=== PATIENT | female | born 1995 | race African-American/Black ===

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

== ENCOUNTER 2017-02-21 15:12 | Emergency (ER) | payer OTHER ==
[~2017-02-21] VITALS: Ht 167.6 cm; Wt 90.7 kg
[~2017-02-21 15:12] MED LIST changes: +PHENAZOPYRIDIN100 MG ORAL
[2017-02-21 16:20] VITALS: BP 107/70
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
[2017-02-21] MEDS ORDERED: CYCLOBENZAPRINE10 MG ORAL (18:06)
[2017-02-21] MEDS ORDERED: IBUPROFEN600 MG ORAL (18:06)
[2017-02-21 18:23] VITALS: BP 110/71
--- NOTE | 2017-02-22 08:15 | Diagnostic Imaging Report ---
Indication: Pain Technique: Continuous helical CT scanning of the head was performed utilizing automated exposure control without intravenous contrast material. Axial and coronal reconstructions were obtained. Comparison: None CT dose: Total DLP 1407.76 mGycm; CTDI vol 70.38 mGy Findings: There is no acute intracranial hemorrhage, mass effect or cortical edema. Size and configuration of the ventricular system within normal limits. The posterior fossa and fourth ventricle are unremarkable. Sellar and suprasellar regions are grossly unremarkable. Visualized mastoid air cells and paranasal sinuses are unremarkable. No focal lesions of the bony calvarium or soft tissues of the scalp are seen. Impression: No evidence of acute intracranial hemorrhage, mass effect or cortical edema. MRI may be obtained for more sensitive evaluation as clinically indicated. This corresponds with the statrad preliminary report. The CT scanner at [facility] is accredited by the [employer] and the scans are performed using protocols designed to limit radiation exposure to as low as reasonably achievable to attain images of sufficient resolution adequate for diagnostic evaluation.
--- NOTE | 2017-02-22 08:25 | Diagnostic Imaging Report ---
Indication: Pain Technique: CT maxillofacial was performed utilizing automated exposure control without intravenous contrast material. Axial and coronal images were generated. CT dose: Total DLP 577.43 mGycm; CTDI vol 28.19 mGy Comparison: None Findings: No acute fracture is identified. The mandible, midface and nasal bones are intact. The orbits are unremarkable. Mastoid air cells are clear. There is mucosal thickening with retention cyst versus polyp in the left maxillary sinus. Minimal mucosal thickening of some left-sided ethmoid air cells. There is opacification of the right lacrimal canaliculus. The nasal septum is midline. Visualized intracranial compartment is unremarkable. Small bilateral nonspecific cervical lymph nodes noted, possibly reactive in etiology. Impression: No acute fracture. This corresponds with the statrad preliminary report. The CT scanner at [facility] is accredited by the [employer] and the scans are performed using protocols designed to limit radiation exposure to as low as reasonably achievable to attain images of sufficient resolution adequate for diagnostic evaluation.
--- NOTE | 2017-02-22 09:45 | Diagnostic Imaging Report ---
Indication: Pain Technique: XRAY Forearm 2v R Comparison: None Findings: There is no acute fracture or dislocation. Partially imaged wrist and elbow joint articulations are preserved. There may be slight reticulation/edema along the dorsal aspect of the midforearm. No radiopaque foreign body identified. Impression: No acute fracture or dislocation.
== END 2017-02-21 18:25 | disposition home or self-care (01) ==
LOC: EMR 16:00
DX: S50.11XA Contusion of right forearm, initial encounter (principal); V47.0XXA Car driver injured in collision with fixed or stationary object in nontraffic accident, initial encounter; Y92.89 Other specified places as the place of occurrence of the external cause; J34.89 Other specified disorders of nose and nasal sinuses; R51 Headache; Y04.2XXA Assault by strike against or bumped into by another person, initial encounter
CPT/HCPCS: 70450; 70486; 99284

== ENCOUNTER 2017-06-14 15:18 | Emergency (ER) | payer SELFPAY ==
[~2017-06-14] VITALS: Ht 167.6 cm; Wt 98.9 kg
[~2017-06-14 15:18] MED LIST changes: +CYCLOBENZAPRINE10 MG ORAL
[2017-06-14 15:44] VITALS: BP 126/79
--- NOTE | 2017-06-14 16:10 | Emergency Room Report ---
History of Present Illness General Chief Complaint: Upper Respiratory Illness Source: Patient (Davey Hay) Present Illness HPI 22-year-old female patient presents to ER complaining of cough with sputum for the past week and intermittent spotting for the past few days. Patient reports cough has been intermittently with green sputum, denies hemoptysis. Denies chest pain. Denies control medication. Patient also complains of spotting for the past few days. Denies pain with urination, dysuria, hematuria , vaginal discharge, foul swelling odor, rash. Denies history of STI. Reports last period was a month ago normal. Reports menstrual period should have begun currently but has not. Reports last sexual encounter few days ago, use protection. Denies fever, chest pain, shortness of breath, abdominal pain. reports taking NyQuil for relief of symptoms. denies lightheadedness, dizziness , fainting. (Davey Hay) Allergies: Coded Allergies: No Known Allergies (Unverified , 07/02/13) Patient History Past Medical History: see triage record Last Menstrual Period: May 08 Now: No Reviewed Nursing Documentation: PMH: Agreed; PSxH: Agreed (Davey Hay) Nursing Documentation-PMH Past Medical History: No Stated History (Davey Hay) Review of Systems All Other Systems: negative except mentioned in HPI (Davey Hay) Physical Exam Vital Signs Date Time Temp Pulse Resp B/P (MAP) Pulse Ox O2 Delivery O2 Flow Rate FiO2 18 15:30 98.1 95 18 127/83 98 Room Air 98.1 Sp02 EP Interpretation: reviewed, normal General Appearance: well appearing, no apparent distress, alert, GCS 15, non- toxic Head: normocephalic, atraumatic Eyes: bilateral eye normal inspection, bilateral eye PERRL ENT: hearing grossly normal, normal pharynx, no angioedema, normal voice, TMs + canals normal, uvula midline, moist mucus membranes, tonsillar swelling, other - no exudates, mild erythema, post nasal drip Neck: full range of motion Respiratory: lungs clear, normal breath sounds, no rhonchi, no respiratory distress, no accessory muscle use, no wheezing, speaking full sentences Cardiovascular #1: regular rate, rhythm, no edema Gastrointestinal: non tender, soft, no mass, non-distended, no guarding, no rebound, other Genitourinary: no CVA tenderness Musculoskeletal: back normal, digits/nails normal, gait/station normal, normal range of motion, non-tender Neurologic: alert, oriented x3, responsive, motor strength/tone normal, sensory intact Psychiatric: mood/affect normal Skin: no rash (Davey Hay) Medical Decision Making PA Attestation Dr. Grant is my supervising Physician whom patient management has been discussed with. (Davey Hay) Diagnostic Impression: Primary Impression: Cough Additional Impressions: Sore throat Spotting ER Course Pt presents to ED c/o sore throat, cough, and spotting. DDX considered but are not limited to pharyngitis, laryngitis, URI, peritonsillar abscess, tonsillitis, bronchitis, UTI, metrorrhagia, . Low suspicion for peritonsillar abscess, no neck stiffness, no hot potato voice , no stridor. low suspicion for pneumonia, does not need a chest x-ray at this time. Does not require imaging at this time. VITAL SIGNS are WNL, patient is afebrile. Ordered viscous lidocaine, medication, UA and urine . ER COURSE: UA negative for nitrites few epithelial cells, no UTI symptoms, low suspicion for UTI, does not require antibiotics at this time. Hematuria present, likely related to spotting symptoms. Urine negative. Results discussed with patient. no signs of anemia, denies dizziness or fainting. Does not require labs at this time. Instructed patient follow with primary care provider for further evaluation of irregular menstruation. Form patient she needs close outpatient follow-up and possible referral to [facility]PUT[facility] ANA[facility] for further treatment and management symptoms. Discuss control at that time. drink plenty of fluids, stay hydrated. If concerned for STI follow-up with STI clinic, patient reports no concern for STI at this time does not require treatment. Lungs clear to auscultation, no wheezes rhonchi or rales. Form patient sore throat likely secondary to cough. Informed patient likely viral cause of symptoms. Instructed patient to stay hydrated, symptomatic relief. Will provide cough medication and Tylenol for pain symptoms. return to ER for new or worsening of symptoms. Patient reports feeling better following administration of medication DISCHARGE: Salt water gargles Rx for Tylenol for pain and fever symptoms Rx for promethazine cough syrup At this time pt is stable for d/c to home. Patient is resting comfortably, in no acute distress, nontoxic appearing, talking without difficulty, smiling and laughing. Will provide with patient care instructions and any necessary prescriptions. Patient to take medication as instructed. Care plan and follow-up instructions provided. Patient questions asked and answered. Patient instructed to follow-up with primary care provider in 3 - 5 days. ER precautions given. Patient instructed to return to ER immediately for any new or worsening of symptoms including but not limited to intractable vomiting, difficulty breathing, inability to eat. - Please note that this Emergency Department Report was dictated using [employer] helper technology software, occasionally this can lead to erroneous entry secondary to interpretation by the dictation equipment. Labs Test 06/14/17 16:00 Urine Color Yellow Urine Appearance Clear Urine pH 7 (4.5-8.0) Urine Specific [place] 1.010 (1.005-1.035) Urine Protein Negative (NEGATIVE) Urine Glucose (UA) Negative (NEGATIVE) Urine Ketones Negative (NEGATIVE) Urine Occult Blood 4+ (NEGATIVE) Urine Nitrite Negative (NEGATIVE) Urine Bilirubin Negative (NEGATIVE) Urine Urobilinogen Normal MG/DL (0.0-1.0) Urine Leukocyte Esterase 1+ (NEGATIVE) Urine RBC 5-10 /HPF (0 - 2) Urine WBC 2-4 /HPF (0 - 2) Urine Squamous Epithelial Cells Few /LPF (NONE/OCC) Urine Bacteria Few /HPF (NONE) Urine HCG, Qualitative Negative (NEGATIVE) (Davey Hay P.A.) Last Vital Signs Date Time Temp Pulse Resp B/P (MAP) Pulse Ox O2 Delivery O2 Flow Rate FiO2 06/14/17 15:44 91 18 Room Air 06/14/17 15:44 98.3 126/79 98 98.3 (Davey Hay P.A.) Disposition: HOME, SELF-CARE Condition: Stable Scripts Promethazine Hcl (PROMETHAZINE HCL*) 6.25 Mg/5 Ml Syrup 5 ML ORAL Q8H, #120 ML 0 Refills Prov: Davey Hay P.ADaniel 06/14/17 Acetaminophen* (TYLENOL EXTRA STRENGTH*) 500 Mg Tablet 500 MG ORAL Q8H PRN for Prn Headache/Temp > 101, #30 TAB 0 Refills Prov: Davey Hay 06/14/17 Patient Instructions: Abnormal Uterine Bleeding, [id number], Cough, Adult, Gmnw-pr-Oxsm, Sore Throat, Yrve-fg-[id number] Additional Instructions: Followup with primary care provider in 3 -5 days. Discuss with PCP or refer to OBGYN to discuss menstrual irregularity. Salt water gargles Rx provided for Tylenol for pain and fever symptoms Drink plenty of water. Take medications as directed. Patient questions asked and answered. ER precautions given, patient instructed to return to ER immediately for any new or worsening of symptoms including but not limited to intractable vomiting, difficulty breathing, inability to eat. Davey Hay June 14, 2017 16:10 Santana Grant M.D. June 15, 2017 05:01
[2017-06-14] MEDS ORDERED: Dexamethasone 4mg/ml vial IM ONE (16:15)
[2017-06-14] MEDS ORDERED: Lidocaine 2% Visc 15ml soln ORAL ONE (16:15)
[2017-06-14] MEDS ORDERED: Acetaminophen 500mg (ES) tab ORAL ONE (16:15)
[2017-06-14 16:18] LABS: APPEARANCE,URINE CLEAR; BILIRUBIN, URINE NEGATIVE (NEGATIVE); GLUCOSE, URINE (UA) NEGATIVE (NEGATIVE); KETONES,URINE NEGATIVE (NEGATIVE); LEUKOCYTE ESTERASE ,URINE 1+ (NEGATIVE); NITRITE,URINE NEGATIVE (NEGATIVE); PH,URINE 7 (4.5-8.0); PROTEIN,URINE NEGATIVE (NEGATIVE); UROBILINOGEN,URINE NORMAL MG/DL (0.0-1.0)
[2017-06-14 16:19] LABS: COLOR,URINE YELLOW
[2017-06-14] MEDS ORDERED: TYLENOL EXTRA500 MG ORAL (17:01)
[2017-06-14] MEDS ORDERED: PROMETHAZI6.25 MG/1 ORAL (17:01)
[2017-06-14 17:20] VITALS: BP 121/76
[2017-06-14 17:23] VITALS: BP 121/76
== END 2017-06-14 17:23 | disposition home or self-care (01) ==
LOC: EMR 16:00
DX: R05 Cough (principal); J02.9 Acute pharyngitis, unspecified
CPT/HCPCS: 81003; 81025; 96372; 99284; J1100

== ENCOUNTER 2019-01-29 12:05 | Emergency (ER) | payer OTHER ==
[~2019-01-29] VITALS: Ht 170.2 cm; Wt 93.0 kg
[~2019-01-29 12:05] MED LIST changes: +PROMETHAZI6.25 MG/1 ORAL; +TYLENOL EXTRA500 MG ORAL
[2019-01-29 12:30] VITALS: BP 107/62
--- NOTE | 2019-01-29 12:30 | NUR ---
ED Nurse Note: Patient arrived to ED from home complaining of right-sided, sharp chest pain x1 week that is positional. She states that position changes aggravate the pain. No shortness of breath on exertion, dizziness, fatigue, or nausea. Patient AxO x 4.
[2019-01-29] MEDS ORDERED: Ketorolac 30mg Inj IV ONE (13:00)
--- NOTE | 2019-01-29 13:01 | Emergency Room Report ---
History of Present Illness General Chief Complaint: Chest Pain Source: Patient Present Illness HPI 23-year-old female with no other significant past medical history other than being a smoker presents to the emergency department complaining of 8 out of 10 severity right-sided chest pain that she describes as radiating from the lateral aspect anteriorly just under the right breast. Patient denies rashes, fevers, recent illness/cough. Patient denies history of asthma or COPD. Patient states she had an acute onset 1 week ago after an episode of moderate laughing. Patient denies hemoptysis or sputum production. She denies appreciable trauma or fall. Patient reports pain is exacerbated upon taking a deep breath and therefore she has been taking shallow breaths this week. Patient states she has not taken any medication for her symptoms and her symptoms have been constant and do not go away. Patient reports that previously she was on control however she no longer is. She denies recent travel or long periods of immobilization. Denies abdominal pain, nausea or vomiting. No other aggravating or relieving factors at this time. Allergies: Coded Allergies: No Known Allergies (Unverified , 07/02/13) Patient History Past Medical History: old chart reviewed Past Surgical History: none Pertinent Family History: none Last Menstrual Period: 01/12/2019 Now: No Reviewed Nursing Documentation: PMH: Agreed; PSxH: Agreed Nursing Documentation-PMH Past Medical History: No Stated History Review of Systems All Other Systems: negative except mentioned in HPI Physical Exam Vital Signs Date Time Temp Pulse Resp B/P (MAP) Pulse Ox O2 Delivery O2 Flow Rate FiO2 01/29/19 12:22 99.0 98 18 107/62 (77) 100 Room Air Medical Decision Making PA Attestation Dr. Kincaid Is my supervising Physician whom patient management has been discussed with. Diagnostic Impression: Primary Impression: Nonspecific chest pain ER Course 23-year-old female with no other significant past medical history other than being a smoker presents to the emergency department complaining of 8 out of 10 severity right-sided chest pain that she describes as radiating from the lateral aspect anteriorly just under the right breast. Patient denies rashes, fevers, recent illness/cough. Patient denies history of asthma or COPD. Patient states she had an acute onset 1 week ago after an episode of moderate laughing. Patient denies hemoptysis or sputum production. She denies appreciable trauma or fall. Patient reports pain is exacerbated upon taking a deep breath and therefore she has been taking shallow breaths this week. Patient states she has not taken any medication for her symptoms and her symptoms have been constant and do not go away. Patient reports that previously she was on control however she no longer is. She denies recent travel or long periods of immobilization. Denies abdominal pain, nausea or vomiting. No other aggravating or relieving factors at this time. Ddx considered but are not limited to ND, pneumonia, contusion, costochondritis , PE, ACS, Shoulder strain, Chest wall contusion. aortic dissection, rib dislocation, pneumonitis. Vital signs: are WNL, pt. is afebrile H&PE are most consistent with Stable CP in a person with low RF for cardiac or embolic event. ORDERS: - EKG: CXR 2 views: ED INTERVENTIONS: - PT. placed on cardiac monitoring. DISCHARGE: At this time pt. is stable for d/c to home. Will provide printed patient care instructions, and any necessary prescriptions. Care plan and follow up instructions have been discussed with the patient prior to discharge. Labs Test 01/29/19 14:10 01/29/19 15:00 D-Dimer 1.04 mg/L FEU (0.00-0.49) White Blood Count 9.4 K/UL (4.8-10.8) Red Blood Count 4.49 M/UL (4.20-5.40) Hemoglobin 8.1 G/DL (12.0-16.0) Hematocrit 27.5 % (37.0-47.0) Mean Corpuscular Volume 61 FL (80-99) Mean Corpuscular Hemoglobin 18.1 PG (27.0-31.0) Mean Corpuscular Hemoglobin Concent 29.5 G/DL (32.0-36.0) Red Cell Distribution Width 15.8 % (11.6-14.8) Platelet Count 447 K/UL (150-450) Mean Platelet Volume 5.9 FL (6.5-10.1) Neutrophils (%) (Auto) 72.5 % (45.0-75.0) Lymphocytes (%) (Auto) 20.6 % (20.0-45.0) Monocytes (%) (Auto) 4.6 % (1.0-10.0) Eosinophils (%) (Auto) 1.3 % (0.0-3.0) Basophils (%) (Auto) 1.1 % (0.0-2.0) Sodium Level 138 MMOL/L (136-145) Potassium Level 3.6 MMOL/L (3.5-5.1) Chloride Level 104 MMOL/L (98-107) Carbon Dioxide Level 25 MMOL/L (21-32) Anion Gap 9 mmol/L (5-15) Blood Urea Nitrogen 11 mg/dL (7-18) Creatinine 0.8 MG/DL (0.55-1.30) Estimat Glomerular Filtration Rate > 60 mL/min (>60) Glucose Level 82 MG/DL (74-106) Calcium Level 9.3 MG/DL (8.5-10.1) Human Chorionic Gonadotropin, Qual Negative (NEGATIVE) EKG Diagnostic Results EP Interpretation: Dr. Kincaid Rate: normal - 82 Rhythm: NSR ST Segments: no acute changes ASA given to the pt in ED: No PA Scribe Text This Interpretation was scribed by HERMINIA Stover. Chest X-Ray Diagnostic Results Chest X-Ray Diagnostic Results : # of Views/Limited/Complete: 2 View Indication: Chest Pain EP Interpretation: Yes PA Xray: Interpretation reviewed, by supervising MD, and agrees with findings. Interpretation: no consolidation, no effusion, no pneumothorax, no acute cardiopulmonary disease Impression: No acute disease Electronically Signed by: Gayle Stover PA-C CT/MRI/US Diagnostic Results CT/MRI/US Diagnostic Results : Imaging Test Ordered: CTA Chest w. Contrast Impression No filling defect to suggest pulmonary embolism." Per official radiology report - Please see report for specific details. Last Vital Signs Date Time Temp Pulse Resp B/P (MAP) Pulse Ox O2 Delivery O2 Flow Rate FiO2 01/29/19 12:22 99.0 98 18 107/62 (77) 100 Room Air Disposition: HOME, SELF-CARE Condition: Stable Scripts Ibuprofen* (MOTRIN*) 600 Mg Tablet 600 MG ORAL THREE TIMES A DAY, #30 TAB 0 Refills Prov: Gayle Stover 01/29/19 Patient Instructions: Nonspecific Chest Pain Additional Instructions: Take medications as directed. Follow up with a Primary Care Provider in 3-5 days, even if your symptoms have resolved. --Please review list of primary care clinics, if you do not already have a primary care provider Return sooner to ED if new symptoms occur, or current symptoms become worse. Do not drink alcohol, drive, or operate heavy machinery while taking Robaxin ( Muscle Relaxers) as this may cause drowsiness. - Please note that this Emergency Department Report was dictated using [employer] programs director technology software, occasionally this can lead to erroneous entry secondary to interpretation by the dictation equipment. Gayle Stover Jan 29, 2019 13:01
[2019-01-29 14:30] VITALS: BP 112/68
--- NOTE | 2019-01-29 14:30 | NUR ---
ED Nurse Note: Patient resting in bed with family at bedside. No s/s of acute distress.
--- NOTE | 2019-01-29 14:53 | Diagnostic Imaging Report ---
EXAM: XR Chest, 2 Views CLINICAL HISTORY: PAIN TECHNIQUE: Frontal and lateral views of the chest. COMPARISON: Chest x-rays dated 07/02/13 FINDINGS: Lungs: Unremarkable. The lungs appear clear. No focal consolidation. Pleural space: Unremarkable. The costophrenic angle are sharp. No visible pneumothorax. Heart: Unremarkable. No cardiomegaly. Mediastinum: Unremarkable. Bones/joints: Unremarkable. Tubes, lines and devices: Telemetry leads overlie the thorax. IMPRESSION: No acute findings.
[2019-01-29] MEDS ORDERED: Omnipaue 350mg/ml 100ml vial INJ PRN (15:00)
[2019-01-29 15:59] LABS: BASOPHILS % (AUTO) 1.1 % (0.0-2.0); EOSINOPHILS % (AUTO) 1.3 % (0.0-3.0); HEMATOCRIT 27.5 % (37.0-47.0); HEMOGLOBIN 8.1 G/DL (12.0-16.0); LYMPHOCYTES % (AUTO) 20.6 % (20.0-45.0); MEAN CORPUSCULAR VOLUME 61 FL (80-99); MONOCYTES % (AUTO) 4.6 % (1.0-10.0); NEUTROPHILS % (AUTO) 72.5 % (45.0-75.0); PLATELET COUNT 447 K/UL (150-450); RED BLOOD COUNT 4.49 M/UL (4.20-5.40); RED CELL DISTRIBUTION WIDTH 15.8 % (11.6-14.8); WHITE BLOOD COUNT 9.4 K/UL (4.8-10.8)
[2019-01-29 16:00] LABS: ANION GAP 9 mmol/L (5-15); BLOOD UREA NITROGEN 11 mg/dL (7-18); CALCIUM 9.3 MG/DL (8.5-10.1); CARBON DIOXIDE 25 MMOL/L (21-32); CHLORIDE 104 MMOL/L (98-107); CREATININE 0.8 MG/DL (0.55-1.30); POTASSIUM 3.6 MMOL/L (3.5-5.1); SODIUM 138 MMOL/L (136-145)
[2019-01-29 16:30] VITALS: BP 115/70
[2019-01-29 18:30] VITALS: BP 107/70
--- NOTE | 2019-01-29 18:50 | NUR ---
ED Nurse Note: Patient resting in bed, she states chest pain is a 1/10, no shortness of breath, VSS. Patient AxO x 4.
--- NOTE | 2019-01-29 19:09 | Diagnostic Imaging Report ---
History: PAIN Exam: CTA CHEST With Contrast MIP images obtained Technique more: CTDI is 82.90 mGy and DLP is 861.50 mGy-cm. Technique more: One or more of the following dose reduction techniques were used: automated exposure control, adjustment of the mA and/or kV according to patient size, use of iterative reconstruction technique. Comparison: FINDINGS: No evidence of filling defect to suggest pulmonary embolism. Thoracic aorta appears within limits. No pericardial or pleural effusion. The central airways are patent without focal consolidation. IMPRESSION: No evidence of filling defect to suggest pulmonary embolism.
[2019-01-29] MEDS ORDERED: IBUPROFEN600 MG ORAL (19:14)
[2019-01-29] MEDS ORDERED: Methocarbamol 750mg tab ORAL ONE (19:15)
[2019-01-29 19:26] VITALS: BP 109/75
--- NOTE | 2019-01-29 19:28 | NUR ---
ER DISCHARGE NOTE: Patient is cleared to be discharged per ERMD, pt is aox4, on room air, with stable vital signs. pt was given dc and prescription instructions, pt was able to verbalize understanding, pt id band and iv site removed without complications. pt is able to ambulate with steady gait. pt took all belongings. Pt states her pain is 1/10. Pt will leave ED with friend.
[2019-01-29 21:33] VITALS: BP 110/76
[2019-01-30] MEDS ORDERED: PREDNISONE20 MG ORAL (13:52)
[2019-01-30] MEDS ORDERED: BENADRYL25 MG ORAL (13:52)
== END 2019-01-29 19:28 | disposition home or self-care (01) ==
LOC: EMR 12:50
DX: R07.9 Chest pain, unspecified (principal)
CPT/HCPCS: 36415; 71046; 71275; 80048; 84703; 85025; 85379; 93005; 96374; J1885; Q9967; Z7502; 99284

== ENCOUNTER 2019-01-30 10:43 | Emergency (ER) | payer OTHER ==
[~2019-01-30] VITALS: Ht 167.6 cm; Wt 93.0 kg
[2019-01-30 10:48] VITALS: BP 118/71
--- NOTE | 2019-01-30 10:58 | NUR ---
ED Nurse Note: PT FROM HOME AND WALKED IN DUE TO FACIAL SWELLING, THROAT ITCHINESS AND SOME RASHES ON HER POSTERIOR NECK THAT STARTED WHEN SHE WOKE UP THIS MORNING. DENIES SOB OR CP. [place] [facility] [place] IV CONTRAST AN A MUSCLE RELAXER. AAO X4, AMBULATES WITH STEADY GAIT AND SPEAKS IN CLEAR SENTENCES. NO RESPIRATORY DISTRESS.
--- NOTE | 2019-01-30 11:24 | Emergency Room Report ---
History of Present Illness General Chief Complaint: Allergic Reaction Source: Patient Present Illness HPI 23-year-old female who came to emergency room for chest pain yesterday. She reported waking up this morning with swelling to her entire face. Patient denies any difficulty breathing, throat pain, swelling to her tongue or mouth. Patient did not take any medications. Patient denies any other symptoms. Patient denies taking any new medications other than what was given to her in the emergency room. She does report having a CT scan with IV contrast. Allergies: Coded Allergies: No Known Allergies (Unverified , 07/02/13) Patient History Last Menstrual Period: 01/13/2019 Nursing Documentation-[facility] Past Medical History: No Stated History Review of Systems Constitutional: Denies: chills, fever Respiratory: Denies: cough, shortness of breath Cardiovascular: Denies: chest pain, palpitations Gastrointestinal: Denies: diarrhea, vomiting Genitourinary: Denies: hematuria, pain Musculoskeletal: Denies: joint swelling Skin: Denies: rash, lesions Neurological: Denies: headache, dizziness Physical Exam Vital Signs Date Time Temp Pulse Resp B/P (MAP) Pulse Ox O2 Delivery O2 Flow Rate FiO2 01/30/19 10:48 98.2 98 19 118/71 (87) 99 Room Air Sp02 EP Interpretation: reviewed General Appearance: well appearing, no apparent distress, non-toxic Head: normocephalic, atraumatic Eyes: bilateral eye normal inspection ENT: hearing grossly normal, EOM grossly intact, normal pharynx, no angioedema , normal voice, TMs + canals normal, uvula midline, moist mucus membranes, other - Mild facial edema around eyes and over diffusely cheeks and face Neck: supple Respiratory: lungs clear, normal breath sounds, no respiratory distress, speaking full sentences Cardiovascular #1: normal inspection, normal peripheral pulses, regular rate, rhythm, no edema, no gallop, no JVD, normal capillary refill Cardiovascular #2: 2+ radial (R), 2+ radial (L) Gastrointestinal: soft, non-distended Rectal: deferred Musculoskeletal: moves extm spontaneously, no lower extremity edema Neurologic: grossly normal Psychiatric: mood/affect normal Skin: warm/dry, normal turgor Medical Decision Making Diagnostic Impression: Primary Impression: Allergic reaction Additional Impression: Edema ER Course 23-year-old female who came to emergency room for chest pain yesterday. She reported waking up this morning with swelling to her entire face. Patient denies any difficulty breathing, throat pain, swelling to her tongue or mouth. Patient did not take any medications. Patient denies any other symptoms. Patient denies taking any new medications other than what was given to her in the emergency room. She does report having a CT scan with IV contrast. Exam showing mild facial edema. No stridor, no difficulty breathing, no respiratory distress, speaking in full sentences, no hives, no rash Patient likely with allergic, hypersensitive reaction at this time. Will give prednisone and Benadryl and reassess. Last Vital Signs Date Time Temp Pulse Resp B/P (MAP) Pulse Ox O2 Delivery O2 Flow Rate FiO2 01/30/19 10:58 92 16 Room Air 01/30/19 10:48 98.2 118/71 99 Status: improved Reevaluation Impression Patient's edema improved. Patient symptoms likely secondary to allergic versus hypersensitivity reaction. Patient recommended to follow-up with primary care doctor in 2 to 3 days for reevaluation. Patient given warning signs about IV contrast and her reaction this time. Patient discharged with Benadryl and steroids. Patient given instructions on how to take medications Disposition: HOME, SELF-CARE Condition: Stable Scripts Prednisone* (PREDNISONE*) 20 Mg Tablet 40 MG ORAL DAILY for 5 Days, #10 TAB Prov: Madhu Kincaid M.D. 01/30/19 Diphenhydramine Hcl* (BENADRYL*) 25 Mg Capsule 25 MG ORAL Q6H PRN for Itching for 5 Days, #20 CAP Prov: Madhu Kincaid M.D. 01/30/19 Referrals: [facility] Departure Forms: Return to Work Return to Work Date: Feb 03, 2019 Patient Instructions: Drug Allergy, Edema Additional Instructions: Follow-up with your primary care doctor in 3 to 4 days for reevaluation for facial swelling and kidney function. Madhu Kincaid M.D. Jan 30, 2019 11:24
--- NOTE | 2019-01-30 13:06 | NUR ---
ED Nurse Note: PT TALKING TO HER FAMILY MEMBER WITHOUT DIFFICULTY AND NO DISTRESS.
[2019-01-30] MEDS ORDERED: PREDNISONE20 MG ORAL (13:52)
[2019-01-30] MEDS ORDERED: BENADRYL25 MG ORAL (13:52)
[2019-01-30 14:03] VITALS: BP 124/68
--- NOTE | 2019-01-30 14:03 | NUR ---
ER DISCHARGE NOTE: Patient is cleared to be discharged per ERMD, pt is aox4, on room air, with stable vital signs. pt was given dc and prescription instructions, pt was able to verbalize understanding, pt id band removed. pt is able to ambulate with steady gait. pt took all belongings and left with her family member.
== END 2019-01-30 14:03 | disposition home or self-care (01) ==
LOC: EMR 11:20
DX: T78.40XA Allergy, unspecified, initial encounter (principal); X58.XXXA Exposure to other specified factors, initial encounter; R60.0 Localized edema; R07.9 Chest pain, unspecified
CPT/HCPCS: J7512; Z7502; 99282